=== PATIENT | male | born 1985 | race Two or more races ===

== ENCOUNTER 2025-04-14 14:03 | Inpatient (IN) | payer OTHER ==
[~2025-04-14] VITALS: Ht 170.2 cm; Wt 92.0 kg
[2025-04-14 14:34] LABS: BASOPHILS % (AUTO) 0.5 % (0.0-2.0); EOSINOPHILS % (AUTO) 0.9 % (1.0-6.0); HEMATOCRIT 43.2 % (41-53); HEMOGLOBIN 14.7 g/dL (13.5-17.5); LYMPHOCYTES # (AUTO) 1.2 K/uL (1.0-4.8); LYMPHOCYTES % (AUTO) 15.6 % (22.0-44.0); MEAN CORPUSCULAR HEMOGLOBIN 27.7 pg (26.0-34.0); MEAN CORPUSCULAR HGB CONC 33.9 G/dL (31.0-37.0); MEAN CORPUSCULAR VOLUME 82 fL (80-100); MONOCYTES # (AUTO) 0.6 K/uL (0.1-1.0); MONOCYTES % (AUTO) 7.9 % (2.0-9.0); NEUTROPHILS # (AUTO) 5.8 K/uL (1.8-7.7); NEUTROPHILS % (AUTO) 75.1 % (40.0-70.0); PLATELET COUNT (AUTO) 256 K/uL (150-450); RED BLOOD CELL COUNT(AUTO) 5.29 MIL/uL (4.50-5.90); RED CELL DISTRIBUTION WIDTH 13.1 % (11.5-14.5); WHITE BLOOD COUNT (AUTO) 7.8 K/uL (4.5-11.0)
[2025-04-14 14:41] LABS: ANION GAP 6 mmol/L (8-16); CALCIUM, TOTAL 9.2 mg/dL (8.8-10.5); CARBON DIOXIDE 28 mmol/L (22-29); CHLORIDE 102 mmol/L (98-107); CREATININE 0.88 mg/dL (0.60-1.30); GLOMERULAR FILTR. RATE CALC > 60 mL/min (>60); GLUCOSE,RANDOM 113 mg/dL (70-110); POTASSIUM 3.9 mmol/L (3.5-5.1); SODIUM SERUM 136 mmol/L (136-145); UREA NITROGEN, BLOOD 17 mg/dL (7-18)
[2025-04-14 14:46] LABS: ALANINE AMINOTRANSFERASE 35 U/L (12-78); ALBUMIN 3.8 g/dL (3.4-5.0); ALKALINE PHOSPHATASE 118 U/L (46-116); ASPARTATE AMINOTRANSFERASE 30 U/L (15-37); BILIRUBIN,TOTAL 0.9 mg/dL (0.1-1.0); CREATINE KINASE, TOTAL ONLY 514 U/L (39-308); TOTAL PROTEIN, SERUM 8.4 g/dL (6.4-8.2)
[2025-04-14 14:51] LABS: B-TYPE NATRIURETIC PEPTIDE < 5 pg/mL (0-100); TROPONIN I-HIGH SENSITIVITY 4 ng/L (<76)
[2025-04-14] MEDS ORDERED: ACETAMINOPHEN 325 MG TABLET PO PRN (15:00)
[2025-04-14] MEDS ORDERED: ONDANSETRON HCL 4 MG/2 ML VIAL IVP PRN (15:00)
[2025-04-14] MEDS ORDERED: MAGNESIUM HYDROXIDE SUSPENSION 30 ML UDCUP PO PRN (15:00)
[2025-04-14 15:03] LABS: ALCOHOL, BLOOD (SERUM) < 3 mg/dL (0-10)
[2025-04-14] MEDS: SODIUM CHLORIDE 0.9% 1,000 ML IV ONE (15:15)
[2025-04-14] MEDS: ONDANSETRON HCL 4 MG/2 ML VIAL IVP ONE (15:15)
[2025-04-14] MEDS: ACETAMINOPHEN 500 MG TABLET PO ONE (15:15)
[2025-04-14] MEDS: LORazepam 2 MG/ML VIAL IVP PRN (15:16)
[2025-04-14 17:14] LABS: TROPONIN I-HIGH SENSITIVITY 6 ng/L (<76)
[2025-04-14 20:29] LABS: PH,URINE DRUG SCREEN 6.5 (5.0-8.0)
[2025-04-14 20:30] LABS: APPEARANCE,URINE CLEAR (CLEAR); BILIRUBIN,URINE NEGATIVE (NEGATIVE); COLOR,URINE YELLOW (YELLOW); GLUCOSE, URINE (UA) NEGATIVE (NEGATIVE); KETONES,URINE NEGATIVE (NEGATIVE); LEUKOCYTE ESTERASE ,URINE NEGATIVE (NEGATIVE); NITRATE,URINE NEGATIVE (NEGATIVE); OCCULT BLOOD,URINE NEGATIVE (NEGATIVE); PH,URINE 6.5 (5.0-8.0); PROTEIN,URINE TRACE mg/dL (NEGATIVE); SPECIFIC GRAVITIY, URINE 1.035 (1.003-1.030); UROBILINOGEN,URINE <=1.0 mg/dL (<=1.0)
[2025-04-14 20:36] LABS: ALCOHOL, URINE DRUG SCREEN NEGATIVE (NEGATIVE); AMPHET/METH SCREEN,URINE POSITIVE (NEGATIVE); BARBITURATE SCREEN, URINE NEGATIVE (NEGATIVE); BENZODIAZEPINES SCREEN,URINE NEGATIVE (NEGATIVE); CANNABINOID SCREEN,URINE NEGATIVE (NEGATIVE); COCAINE SCREEN,URINE NEGATIVE (NEGATIVE); METHADONE SCREEN, URINE POSITIVE (NEGATIVE); OPIATE SCREEN,URINE NEGATIVE (NEGATIVE); PHENCYCLIDINE SCREEN,URINE NEGATIVE (NEGATIVE)
[2025-04-14 20:38] VITALS: BP 149/81; PULSE 75; RESP 18; TEMP 97.9; O2SAT 99
[2025-04-14] MEDS: FAMOTIDINE 20 MG TABLET PO SCH (22:03)
[2025-04-15 00:19] VITALS: BP 127/85; PULSE 80; RESP 18; TEMP 97.7; O2SAT 99
[2025-04-15 05:03] VITALS: BP 125/90; PULSE 68; RESP 18; TEMP 97.9; O2SAT 99
[2025-04-15 08:00] VITALS: BP 140/90; PULSE 77; RESP 18; TEMP 97.5; O2SAT 96
[2025-04-15 12:39] VITALS: BP 134/100; PULSE 63; RESP 19; TEMP 98.1; O2SAT 99
[2025-04-15 16:36] VITALS: BP 127/96; PULSE 64; RESP 18; TEMP 97.5; O2SAT 97
[2025-04-15] MEDS: ZOLPIDEM TARTRATE 5 MG TABLET PO PRN (20:52)
[2025-04-15 22:26] VITALS: BP 133/74; PULSE 79; RESP 16; TEMP 97.5; O2SAT 98
[2025-04-16 00:18] VITALS: BP 140/78; PULSE 80; RESP 16; TEMP 98; O2SAT 98
[2025-04-16 04:00] VITALS: BP 120/78; PULSE 78; RESP 16; TEMP 98; O2SAT 98
[2025-04-16 09:25] VITALS: BP 121/85; PULSE 85; RESP 20; TEMP 98.1; O2SAT 99
[2025-04-16 12:00] VITALS: BP 120/72; PULSE 80; RESP 18; TEMP 98.1; O2SAT 98
[2025-04-16 16:10] VITALS: BP 125/76; PULSE 85; RESP 19; TEMP 98; O2SAT 98
[2025-04-16 19:54] VITALS: BP 133/87; PULSE 78; RESP 17; TEMP 98.2; O2SAT 97
[2025-04-17 00:23] VITALS: BP 133/102; PULSE 77; RESP 18; TEMP 97.9; O2SAT 97
== END 2025-04-17 01:15 | DRG 897 ==
LOC: EMS 14:09 → EDH 14:50 → 5S 20:30
PROVIDERS: ADMIT Internal Medicine; ATTEND Internal Medicine
DX: F11.13 Opioid abuse with withdrawal (principal); F41.9 Anxiety disorder, unspecified; R07.89 Other chest pain; Z79.899 Other long term (current) drug therapy
CPT/HCPCS: 71045; 80048; 80076; 80307; 81003; 82550; 83880; 84484; 85025; 93005; 93306; 96361; 96374; 99285; G0480; J2060; J2405; J7030; 36415-L1; 36415-TC